=== PATIENT | female | born 2000 ===

== ENCOUNTER 2021-09-15 16:50 | Emergency (ER) | payer MEDICAID, OTHER ==
[~2021-09-15] VITALS: Ht 160 cm; Wt 47.2 kg
[2021-09-15 23:26] VITALS: BP 117/73
== END 2021-09-15 23:29 | disposition home or self-care (01) ==
LOC: ER 16:50
DX: R07.89 Other chest pain (principal)
CPT/HCPCS: 71046; 93005

== ENCOUNTER 2023-12-16 21:39 | Emergency (ER) | payer MEDICAID ==
[~2023-12-16] VITALS: Ht 157.5 cm; Wt 58.6 kg
[2023-12-16] MEDS ORDERED: IBUP1TAB4 PO (23:35)
[2023-12-16] MEDS ORDERED: ZOFR4T PO (23:35)
[2023-12-16 23:40] VITALS: BP 124/92; PULSE 81; RESP 18; TEMP 97.8; O2SAT 97
[2023-12-16] MEDS: ONDANSETRON ODT 4 MG TAB PO ONE (23:56)
[2023-12-16] MEDS: IBUPROFEN 600 MG TAB PO ONE (23:56)
== END 2023-12-17 00:16 | disposition home or self-care (01) ==
LOC: ER 21:39
DX: R51.9 Headache, unspecified (principal)
CPT/HCPCS: 99283; Q0162